=== PATIENT | male | born 1985 | race Caucasian/White ===

== ENCOUNTER 2017-02-09 10:54 | Emergency (ER) | payer OTHER ==
[2017-02-09 11:36] VITALS: BP 168/84
--- NOTE | 2017-02-09 12:28 | UC ---
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 control--last year dx with tennis elbow used a tension band and went to physical therapy with out relief - History of Current Complaint Chief Complaint: UCUpperExtremity Stated Complaint: RT ARM INJURY Time Seen by Provider: 02/09/17 12:11 Hx Obtained From: Patient Mechanism of Injury: repeative stress injury Onset/Duration: Weeks, Atraumatic, Still Present Severity Initially: Moderate Severity Currently: Moderate Location Of Pain: Is Discrete @ - right elbow bicept and forarm Character: Aching, Burning Aggravating Factor(s): Movement Alleviating Factor(s): Rest Associated Signs And Symptoms: Positive: Weakness, Numbness/Tingling - Allergies/Home Medications Allergies/Adverse Reactions: Allergies Allergy/AdvReac Type Severity Reaction Status Date / Time No Known Allergies Allergy Verified 02/09/17 11:31 PMH/Surg Hx/FS Hx/Imm Hx Previously Healthy: Yes - Surgical History Surgical History: Yes Surgery Procedure, Year, and Place: Left knee - Family History Known Family History: Positive: None - Social History Occupation: Employed Full-time Lives: With Family Alcohol Use: Occasionally Substance Use Type: None Smoking Status (MU): Heavy Every Day Tobacco Smoker Type: Cigarettes Amount Used/How Often: 1/2 ppd Length of Time of Smoking/Using Tobacco: 10 years Have You Smoked in the Last Year: Yes Cessation Counseling: Patient Advised to Stop Review of Systems Constitutional: Negative Skin: Negative Eyes: Negative ENT: Negative Respiratory: Negative Cardiovascular: Negative Gastrointestinal: Negative Genitourinary: Negative Motor: Negative - elbow, Weakness Neurovascular: Negative Musculoskeletal: Arthralgia - right elbow, Myalgia - right bicept and forearm Neurological: Paresthesia - in right forearm from time to time Psychological: Negative Is Patient Immunocompromised?: No All Other Systems Reviewed And Are Negative: Yes Physical Exam Triage Information Reviewed: Yes Appearance: Well-Appearing, No Pain Distress, Well-Nourished Vital Signs: Initial Vital Signs Temp 98.6 F 02/09/17 11:31 Pulse 68 02/09/17 11:31 Resp 20 02/09/17 11:31 BP 168/84 02/09/17 11:31 Vital Signs Reviewed: Yes Eye Exam: Normal Eyes: Positive: Conjunctiva Clear ENT Exam: Normal ENT: Positive: Normal ENT inspection, Hearing grossly normal, Pharynx normal. Negative: Nasal congestion, Nasal drainage, Trismus, Muffled voice, Hoarse voice Dental Exam: Normal Neck exam: Normal Neck: Positive: Supple, Nontender Respiratory Exam: Normal Respiratory: Positive: Chest non-tender, No respiratory distress, No accessory muscle use Cardiovascular Exam: Normal Cardiovascular: Positive: RRR, Pulses Normal, Brisk Capillary Refill Musculoskeletal Exam: Normal Musculoskeletal: Positive: ROM Intact, No Edema, Strength Limited @ - slightly less right arm Neurological Exam: Normal Neurological: Positive: Alert Psychological Exam: Normal Skin Exam: Normal Elbow Pain Course/Dx - Course Course Of Treatment: conter tension band follow with orthopedic MD in the next few days - Differential Dx/Diagnosis Provider Diagnoses: Tendonitis right elbow Discharge - Discharge Plan Condition: Stable Disposition: HOME Patient Education Materials: Hypertension (ED), Tendinitis (ED) Referrals: [facility] [place] [facility]IAN REFERRAL [Outside] - 2 Weeks Justin Boswell MD [Medical Doctor] - 2 Days
== END 2017-02-09 12:45 | disposition home or self-care (01) ==
LOC: UCCORT 10:54
DX: M70.821 Other soft tissue disorders related to use, overuse and pressure, right upper arm (principal); Y93.89 Activity, other specified; Y92.69 Other specified industrial and construction area as the place of occurrence of the external cause; Z72.89 Other problems related to lifestyle; Z72.0 Tobacco use
CPT/HCPCS: 99211; G0463